=== PATIENT | male | born 1940 | race Caucasian/White ===

== ENCOUNTER → 2017-06-29 | Outpatient (CLI) | payer MEDICARE, BC ==
[~2017-06-29] MED LIST: ASPI81TA11 PO; ATEN-102 PO; GLIP5TAB15 PO; PRIL40CA PO; PROS5TAB2 PO; TERA10CA3 PO
[2017-06-29 10:15] LABS: INTERNATIONAL NORMALIZED RATIO 2.2 RATIO; PROTHROMBIN TIME - PATIENT 22.5 SEC (9.8-11.6)
== END ==
LOC: PLAB 09:07
DX: I48.0 Paroxysmal atrial fibrillation (principal)
CPT/HCPCS: 36415; 85610

== ENCOUNTER → 2017-07-29 | Outpatient (CLI) | payer MEDICARE, BC ==
[2017-07-29 09:14] LABS: INTERNATIONAL NORMALIZED RATIO 2.1 RATIO; PROTHROMBIN TIME - PATIENT 20.8 SEC (9.8-11.6)
== END ==
LOC: PLAB 08:40
DX: I48.0 Paroxysmal atrial fibrillation (principal)
CPT/HCPCS: 36415; 85610